=== PATIENT | male | born 1995 | race African-American/Black ===

== ENCOUNTER 2019-07-24 06:57 | Emergency (ER) | payer MEDICAID, OTHER ==
[2014-08-13 16:08] VITALS: BP 156/86
[~2019-07-24 06:57] MED LIST: AMLO10TA8; CLON0.1T PO; DIPH25CA58 PO; DIVA125T PO; LAMO5TB.2 PO; LOSA100T14; ZIPR20CA2 PO
== END 2019-07-24 07:07 | disposition left against medical advice (07) ==
LOC: ER 06:57
DX: S69.90XA Unspecified injury of unspecified wrist, hand and finger(s), initial encounter (principal); Z53.21 Procedure and treatment not carried out due to patient leaving prior to being seen by health care provider; W23.0XXA Caught, crushed, jammed, or pinched between moving objects, initial encounter; Y93.89 Activity, other specified; Y92.89 Other specified places as the place of occurrence of the external cause; Y99.8 Other external cause status